=== PATIENT | male | born 1980 | race American Indian/Alaskan Native ===

== ENCOUNTER 2019-01-17 16:23 | Inpatient (IN) | payer MEDICAID ==
[2019-01-17 17:57] LABS: BASO % 0.6 % (0.0-2.0); EOS # 0.1 K/uL (0.0-0.7); EOS % 1.1 % (0.0-4.0); HEMOGLOBIN 12.2 g/dL (12.0-18.0); LYMPH # 2.2 K/uL (1.0-4.3); LYMPH % 27.4 % (20.0-40.0); MEAN CELL VOLUME 82.1 fL (80.0-94.0); MEAN CORPUSCULAR HEMOGLOBIN 27.5 pg (27.0-31.0); MEAN CORPUSCULAR HGB CONC 33.5 g/dL (33.0-37.0); MEAN PLATELET VOLUME 8.7 fL (7.2-11.7); MONO # 0.4 K/uL (0.0-0.8); MONO % 5.4 % (0.0-10.0); NEUT # 5.3 K/uL (1.8-7.0); NEUT % 65.5 % (50.0-75.0); RBC 4.45 Mil/uL (4.40-5.90); RED CELL DISTRIBUTION WIDTH 15.6 % (11.5-14.5); WHITE BLOOD COUNT 8.1 K/uL (4.8-10.8)
[2019-01-17 18:12] LABS: SQUAMOUS EPITHIAL 1 /hpf (0-5); URINE BILIRUBIN NEGATIVE (NEGATIVE); URINE BLOOD 2+ (NEGATIVE); URINE CLARITY Hazy (Clear); URINE COLOR Yellow (YELLOW); URINE GLUCOSE (UA) 3+ mg/dL (Normal); URINE HYALINE CAST 4 /lpf (0-2); URINE LEUKOCYTE ESTERASE TRACE Leu/uL (Negative); URINE PROTEIN 3+ mg/dL (NEGATIVE); URINE UROBILINOGEN NORMAL mg/dL (0.2-1.0)
[2019-01-17 18:14] LABS: ALB/GLOB RATIO 1.3 (1.0-2.1); ALBUMIN 4.2 g/dL (3.5-5.0); ALT/SGPT 23 U/L (21-72); AST/SGOT 26 U/L (17-59); BLOOD UREA NITROGEN 28 mg/dL (9-20); CALCIUM 9.6 mg/dl (8.6-10.4); GFR NON-AFRICAN AMERICAN 56
[2019-01-17 18:21] LABS: BARBITURATES, UR NEGATIVE (NEGATIVE); BENZODIAZEPINES, UR NEGATIVE (NEGATIVE); OPIATES, UR NEGATIVE (NEGATIVE); PHENCYCLIDINE, UR NEGATIVE (NEGATIVE)
[2019-01-17] MEDS ORDERED: (Novolin R) Insulin Human Regular 100 units/ml vial SC ONE (19:40)
--- NOTE | 2019-01-17 19:42 | C.PDOC ---
History Of Present Illness 38 y/o male comes in to ED requesting detox from alcohol. States last drink was earlier today. Denies SI/HI. No f/c/n/v Time Seen by Provider: 01/17/19 19:30 Chief Complaint (Nursing): Substance Abuse History Per: Patient History/Exam Limitations: no limitations Onset/Duration Of Symptoms: Days Current Symptoms Are (Timing): Still Present Suicide/Self Injury Attempted (Context): None Modifying Factor(s): Alcohol Severity: None Pain Scale Rating Of: 0 Associated Symptoms: denies: Depression, Suicidal Thoughts Involuntary Hold By: None Recent travel outside of the [place]: No Additional History Per: Patient Past Medical History Reviewed: Historical Data, Nursing Documentation, Vital Signs Vital Signs: Last Vital Signs Temp 98.1 F 01/17/19 17:50 Pulse 83 01/17/19 17:50 Resp 18 01/17/19 17:50 BP 178/97 H 01/17/19 17:50 Pulse Ox 100 01/17/19 17:50 Primary Care Provider: FAMILY PROVIDER,NO - Medical History PMH: Bipolar Disorder, Depression Family History: States: No Known Family Hx - Social History Hx Alcohol Use: Yes Hx Substance Use: No - Immunization History Hx Tetanus Toxoid Vaccination: Yes Hx Influenza Vaccination: Yes Hx Pneumococcal Vaccination: Yes Review Of Systems Constitutional: Negative for: Fever, Chills Cardiovascular: Negative for: Chest Pain Respiratory: Negative for: Cough, Shortness of Breath Gastrointestinal: Negative for: Nausea, Vomiting Musculoskeletal: Negative for: Back Pain Skin: Negative for: Rash Neurological: Negative for: Weakness, Numbness Psych: Positive for: Other (alcohol abuse). Negative for: Suicidal ideation (or homicidal ideation) Physical Exam - Physical Exam Appears: Non-toxic, No Acute Distress Skin: Warm, Dry Head: Normacephalic Eye(s): bilateral: Normal Inspection Oral Mucosa: Moist Neck: Supple Cardiovascular: Rhythm Regular Respiratory: No Rales, No Rhonchi, No Wheezing Gastrointestinal/Abdominal: Soft, No Tenderness, No Distention Extremity: Normal ROM Extremity: Bilateral: Atraumatic Neurological/Psych: Oriented x3 Gait: Steady ED Course And Treatment - Laboratory Results Result Diagrams: 01/17/19 17:54 01/17/19 17:54 Lab Results: Total Bilirubin 0.7 mg/dL (0.2-1.3) 01/17/19 17:54 AST 26 U/L (17-59) 01/17/19 17:54 ALT 23 U/L (21-72) 01/17/19 17:54 Alkaline Phosphatase 138 U/L (38-126) H 01/17/19 17:54 Total Protein 7.3 g/dL (6.3-8.3) 01/17/19 17:54 Albumin 4.2 g/dL (3.5-5.0) 01/17/19 17:54 Globulin 3.1 gm/dL (2.2-3.9) 01/17/19 17:54 Albumin/Globulin Ratio 1.3 (1.0-2.1) 01/17/19 17:54 Urine Color Yellow (YELLOW) 01/17/19 17:54 Urine Clarity Hazy (Clear) 01/17/19 17:54 Urine pH 5.0 (5.0-8.0) 01/17/19 17:54 Ur Specific [place] 1.027 (1.003-1.030) 01/17/19 17:54 Urine Protein 3+ mg/dL (NEGATIVE) H 01/17/19 17:54 Urine Glucose (UA) 3+ mg/dL (Normal) H 01/17/19 17:54 Urine Ketones Negative mg/dL (NEGATIVE) 01/17/19 17:54 Urine Blood 2+ (NEGATIVE) H 01/17/19 17:54 Urine Nitrate Negative (NEGATIVE) 01/17/19 17:54 Urine Bilirubin Negative (NEGATIVE) 01/17/19 17:54 Urine Urobilinogen Normal mg/dL (0.2-1.0) 01/17/19 17:54 Ur Leukocyte Esterase Trace [place]/uL (Negative) 01/17/19 17:54 Urine WBC (Auto) 19 /hpf (0-5) H 01/17/19 17:54 Urine RBC (Auto) 9 /hpf (0-3) H 01/17/19 17:54 Ur Squamous Epith Cells 1 /hpf (0-5) 01/17/19 17:54 Hyaline Casts 4 /lpf (0-2) 01/17/19 17:54 O2 Sat by Pulse Oximetry: 100 (RA) Pulse Ox Interpretation: Normal Progress Note: pt will benefit from a medical consult regarding his elevated blood sugar. Will also need accuchecks Medical Decision Making Medical Decision Making: Plan: --Labs --UA Disposition Discussed With : Luiz Helton Comment: accepted the pt onhis service and took over the care at 7:41 PM Doctor Will See Patient In The: Hospital Counseled Patient/Family Regarding: Studies Performed, Diagnosis - Disposition Disposition: HOSPITALIZED Disposition Time: 19:00 Condition: FAIR - POA Present On Arrival: Poor Glycemic Control - Clinical Impression Clinical Impression: Alcohol use disorder, severe, dependence, Hyperglycemia - Scribe Statement The provider has reviewed the documentation as recorded by the Naz Martinez Provider Attestation: All medical record entries made by the Naz were at my direction and personally dictated by me. I have reviewed the chart and agree that the record accurately reflects my personal performance of the history, physical exam, medical decision making, and the department course for this patient. I have also personally directed, reviewed, and agree with the discharge instructions and disposition.
--- NOTE | 2019-01-17 20:00 | PCM.BM ---
<Karsten Rhodes - Last Filed: 01/17/19 19:57> Treatment Plan Problems - Problems identified on initial assessmt knowledge deficit:alcohol use Date Initiated: 01/17/19 Time Initiated: 19:58 Assessment reference: NA Status: Active anxiety related to substance use Date Initiated: 01/17/19 Time Initiated: 20:00 Assessment reference: NA Status: Active denial Date Initiated: 01/17/19 Time Initiated: 20:00 Assessment reference: NA Status: Active Treatment assets and liabiliti Patient Assests: adapts well, cooperative, cognitively intact Patient Liabilities: substance abuse, medical problems - Milieu Protocol Maintain good personal hygiene: daily Encourage regular showers, daily Remind patient to perform daily oral care, daily Assist patient to perform ADL's Conduct patient checks and document Observation sheet: Q15 minutes Maintain personal safety: every shift Educate patient to report safety concerns to staff, every shift Monitor environment for contraband/sharps Medication safety: Monitor for expected outcome, potential side effects: every shift, Assess barriers to learning: every shift, Assess readiness for medication education: every shift <Luiz Helton - Last Filed: 01/21/19 12:43> - Diagnosis (1) Alcohol use disorder, severe, dependence Status: Acute Interventions: 01/21/19 12:43 * Assess 7x/week regarding severity of withdrawal * Educate regarding risks, benefits, side effects and alternatives of medications * Use Motivational Interviewing for abstinence * Use CBT for relapse prevention * Medication management for withdrawal symptoms * Encourage medication assisted treatment *
[2019-01-17] MEDS: (Novolog) Insulin Aspart, Recombinant 100 u/ml 10 ml vial SC SCH (22:59)
[2019-01-18] MEDS: (Novolog) Insulin Aspart, Recombinant 100 u/ml 10 ml vial SC SCH ×4 (08:32→21:15)
[2019-01-18] MEDS: Multiple Vitamins Tab PO SCH (14:02)
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
[2019-01-18] MEDS ORDERED: Glucagon Recombinant 1 mg Inj IM PRN (16:13)
[2019-01-18] MEDS ORDERED: Dextrose 50% SYRINGE Inj (50 ml) IV PRN (16:13)
[2019-01-18] MEDS ORDERED: (Novolin R) Insulin Human Regular 100 units/ml vial SC SCH (16:30)
--- NOTE | 2019-01-18 19:32 | PCM.PSYCH ---
Initial Psychiatric Evaluation - Initial Psychiatric Evaluation Type of Admission: Voluntary Legal Status: Capacity Chief Complaint (in patient's own words): "I want detox from alcohol" History of Present Illness and Precipitating Events: Patient is a 38 year old -[place] single male, who presented to the ED requesting alcohol detox. He reports that he drinks 10-20 cans of beer daily. He reports that he started drinking when he was 11 years old. He reports that he does not drink hard liquor, and reports that he has a history of seizures and significant withdrawal symptoms when he stops drinking. He reports that the last time he had a seizure was 2 years ago, he denies any history of DTs. Patient reports that he has been to a detox for alcohol 5 years ago at [facility]. Patient also reports a history of Bipolar and depression, but he is not taking any psychiatric medications. He reports that he has been treated with Celexa and Depaokote in the past, and last time he took medication was the time when he was incarcerated about 2 months ago. Patient reports he was in penitentiary for violating parole for burglary. Patient currently lives with his mother and his son. He is unemployed and is on SSI. He reports that he smokes about 1 pack of cigarettes daily, but does not want a nicotine patch. He denies using any other illicit drugs. He reports that his sleep and appetite are good. He is motivated to get treatment and possibly get into a rehab upon discharge. He reports having withdrawal symptoms such as diaphoresis, body aches, irritability and anxiety. PsychHx: Bipolar and Depression - treated with Celexa and Depakote, Alcohol Use Disorder, Tobacco Use Disorder, denies any suicide attempts PMHx: Diabetes, ?Diabetic Neuropathy FamHx: Denies Current Medications: Active Medications Generic Name Dose Route Start Last Admin Trade Name Freq PRN Reason Stop Dose Admin Chlordiazepoxide 25 mg 01/18/19 06:00 01/18/19 17:04 Librium PO 01/22/19 05:59 25 mg Q6 SHAYLA Administration Taper Clonidine HCl 0.1 mg 01/18/19 06:14 01/18/19 17:03 Catapres PO 0.1 mg Q6H PRN Administration Withdrawal symptoms Dextrose 0 ml 01/18/19 16:13 Dextrose 50% Inj IV STAT PRN Hypoglycemia Protocol Protocol Dextrose 0 gm 01/18/19 16:13 Glutose 15 PO ONCE PRN Hypoglycemia Protocol Protocol Folic Acid 1 mg 01/18/19 13:15 01/18/19 14:02 Folic Acid PO 1 mg DAILY SHAYLA Administration Gabapentin 100 mg 01/18/19 18:00 01/18/19 17:03 Neurontin PO 100 mg TID SHAYLA Administration Glucagon 0 mg 01/18/19 16:13 Glucagen Diagnostic Kit IM STAT PRN Hypoglycemia Protocol Protocol Dextrose 1,000 mls @ 0 mls/hr 01/18/19 16:13 Dextrose 5% In Water 1000 Ml IV .Q0M PRN Hypoglycemia Protocol Protocol Per Protocol Insulin Aspart 0 unit 01/18/19 16:58 Novolog SC [facility] Protocol Multivitamins 1 tab 01/18/19 13:15 01/18/19 14:02 Hexavitamin PO 1 tab DAILY SHAYLA Administration Thiamine HCl 100 mg 01/18/19 13:15 01/18/19 14:02 Vitamin B1 Tab PO 100 mg DAILY SHAYLA Administration Trazodone HCl 50 mg 01/18/19 13:08 Desyrel PO HS PRN Insomnia Past Psychiatric History - Past Psychiatric History Pertinent Medical Hx (Current Medical&Sleep Prob, Allergies): Allergies Allergy/AdvReac Type Severity Reaction Status Date / Time No Known Allergies Allergy Unverified 01/17/19 16:29 Citalopram Hydrobromide [Celexa] 20 mg PO BID 01/17/19 Divalproex [Depakote ER] 300 mg PO BID 01/17/19 Review of Systems - Psychiatric Psychiatric: As Per HPI, Behavioral Changes, Change in Appetite, Depression, Difficulty Concentrating, Irritability Mental Status Examination - Affect Affect: Depressed - Motor Activity Motor Activity: Calm - Reliability in Providing Information Reliability in Providing Information: Fair - Speech Speech: Organized, Relevant, Coherent - Mood Mood: Depressed, Anxious - Formal Thought Process Formal Thought Process: No Impairment - Obsessions/Compulsions Obsessions: None Compulsions: None - Cognitive Functions Orientation: Person, Place, Situation, Time Sensorium: Alert Attention/Concentration: Attentive Estimate of Intelligence: Average Judgement: Imparied, as evidence by: Poor judgement Memory: Recent intact, as evidence by: 3/3 object recall - Risk Risk: Seizure, Withdrawal, Falls - Strength & Assets Inventory Strength & Assets Inventory: Family support, Life experience DSM 5 DX - DSM 5 DSM 5 Diagnosis: Alcohol Withdrawal Alcohol Use Disorder Bipolar Disorder MRE Depressed - Recommended/Plan of Treatment Treatment Recommendations and Plan of Treatment: Taper with Librium Gabapentin for augmentation if needed As needed medications: - Librium, Clonidine, Atarax and Trazodone All risks, benefits and alternatives of the meds discussed, and the pt agreed and understood. Attend groups and activities Supportive therapy and psychoeducation MT for abstinence CBT for relapse prevention Encourage MAT Refer to rehab or IOP, and self-help groups Teach healthy lifestyle methods, i.e. diet, exercise, meditation Smoking cessation with MT Nicotine patch if needed - Patient declined 34 min Projected ELOS: TBD - Smoking Cessation Smoking Cessation Initiated: No Reason for not providing: Patient declined offer even after education
[2019-01-19] MEDS: (Novolog) Insulin Aspart, Recombinant 100 u/ml 10 ml vial SC SCH ×4 (07:36→20:59)
[2019-01-19 09:00] LABS: BASO % 0.7 % (0.0-2.0); EOS # 0.1 K/uL (0.0-0.7); EOS % 1.6 % (0.0-4.0); HEMOGLOBIN 11.6 g/dL (12.0-18.0); LYMPH # 2.2 K/uL (1.0-4.3); LYMPH % 32.5 % (20.0-40.0); MEAN CELL VOLUME 82.9 fL (80.0-94.0); MEAN CORPUSCULAR HGB CONC 33.8 g/dL (33.0-37.0); MEAN PLATELET VOLUME 9.2 fL (7.2-11.7); MONO # 0.4 K/uL (0.0-0.8); MONO % 6.4 % (0.0-10.0); NEUT # 4.1 K/uL (1.8-7.0); NEUT % 58.8 % (50.0-75.0); NRBC % 0.1 % (0.0-2.0); RBC 4.12 Mil/uL (4.40-5.90); RED CELL DISTRIBUTION WIDTH 15.6 % (11.5-14.5); WHITE BLOOD COUNT 6.9 K/uL (4.8-10.8)
[2019-01-19 09:22] LABS: ALB/GLOB RATIO 1.5 (1.0-2.1); ALBUMIN 3.6 g/dL (3.5-5.0); ALT/SGPT 18 U/L (21-72); AST/SGOT 121 U/L (17-59); BLOOD UREA NITROGEN 20 mg/dL (9-20); CALCIUM 9.4 mg/dl (8.6-10.4); GFR NON-AFRICAN AMERICAN 56
[2019-01-19] MEDS: Divalproex 250 mg DR Tab PO SCH ×2 (10:38→17:00)
[2019-01-19] MEDS: Multiple Vitamins Tab PO SCH (10:38)
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
--- NOTE | 2019-01-19 11:57 | US ---
Date of service: 01/19/2019 PROCEDURE: Ultrasound of the Kidneys HISTORY: renal impairment COMPARISON: None available. TECHNIQUE: Sonogram of the kidneys. FINDINGS: RIGHT KIDNEY: Measures: 11.8 x 5.7 x 6.2 cm. Normal in size, contour and echogenicity. No stone, solid mass lesion or hydronephrosis visualized. There is hypoechoic lesion at the midpole of the right kidney measures 3.5 x 2.7 x 3.5 centimeter contains since septation. LEFT KIDNEY: Measures: 11.3 x 6.1 x 6 cm. Normal in size, contour and echogenicity. No stone, solid mass lesion or hydronephrosis visualized. OTHER FINDINGS: None. IMPRESSION: Hypoechoic lesion at the midpole of the right kidney measures 3.5 centimeter contains thin septation likely represent renal cyst. No evidence of hydronephrosis.
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
--- NOTE | 2019-01-19 18:39 | PCM.PYCHPN ---
Psychiatric Progress Note - Psychiatric Progress Note Patient seen today, length of contact: 17 Mins Patient Chief Complaint: "I want detox from alcohol" Problems Identified/Issues Discussed: The pt is seen, chart reviewed, case is discussed with staff. Patient had critical value or random glucose 616 - He is currently being followed by medicine The pt is compliant with medications and reports no side-effects. Symptoms are improving but needs more time to stabilize and to avoid relapse. Pt attends groups and activities. Support given, psycho-education provided. After care discussed. Medication Change: Yes (Detox changes daily) Medical Record Reviewed: Yes Mental Status Examination - Cognitive Function Orientation: Person, Place, Situation, Time Attention: WNL Concentration: WNL - Mood Mood: Depressed, Anxious - Affect Affect: Blunted, Depressed - Speech Speech: Appropriate - Formal Thought Process Formal Thought Process: No Impairment - Suicidal Ideation Suicidal Ideation: No - Homicidal Ideation Homicidal Ideation: No Goal/Treatment Plan - Goal/Treatment Plan Need for Continued Stay: Remain at risks for inpatient hospitalization, Discharge may exacerbated symptoms Progress Toward Problem(s) and Goals/Treatment Plan: Continue medications Support and psychoeducation daily Attend groups and activities daily Individual therapy After care planning by executive secretary social welfare and the team
[2019-01-19] MEDS ORDERED: (Lantus) Insulin Glargine, Recombinant SC SCH (22:00)
[2019-01-20 08:22] LABS: BASO % 0.6 % (0.0-2.0); EOS # 0.1 K/uL (0.0-0.7); EOS % 1.6 % (0.0-4.0); HEMOGLOBIN 11.4 g/dL (12.0-18.0); LYMPH # 2.5 K/uL (1.0-4.3); LYMPH % 33.5 % (20.0-40.0); MEAN CELL VOLUME 82.6 fL (80.0-94.0); MEAN CORPUSCULAR HEMOGLOBIN 27.5 pg (27.0-31.0); MEAN CORPUSCULAR HGB CONC 33.2 g/dL (33.0-37.0); MEAN PLATELET VOLUME 9.7 fL (7.2-11.7); MONO # 0.4 K/uL (0.0-0.8); MONO % 5.7 % (0.0-10.0); NEUT # 4.4 K/uL (1.8-7.0); NEUT % 58.6 % (50.0-75.0); NRBC % 0.1 % (0.0-2.0); RBC 4.15 Mil/uL (4.40-5.90); WHITE BLOOD COUNT 7.5 K/uL (4.8-10.8)
[2019-01-20] MEDS: (Novolog) Insulin Aspart, Recombinant 100 u/ml 10 ml vial SC SCH ×4 (08:43→21:17)
[2019-01-20 08:53] LABS: ALB/GLOB RATIO 1.4 (1.0-2.1); ALBUMIN 3.2 g/dL (3.5-5.0); ALT/SGPT 22 U/L (21-72); AST/SGOT 28 U/L (17-59); BLOOD UREA NITROGEN 20 mg/dL (9-20); CALCIUM 9.2 mg/dl (8.6-10.4); GFR NON-AFRICAN AMERICAN > 60; HDL CHOLESTEROL 58 mg/dL (30-70)
[2019-01-20 08:56] LABS: LDL CHOLESTEROL 112 mg/dL (0-129)
[2019-01-20] MEDS: Divalproex 250 mg DR Tab PO SCH ×2 (10:22→17:08)
[2019-01-20] MEDS: Multiple Vitamins Tab PO SCH (10:23)
[2019-01-20] MEDS ORDERED: (Novolog Mix 70/30) Insulin Aspart/Insulin Aspar 100 units/ml SC SCH (16:30)
[2019-01-20 19:24] LABS: HEPATITIS B SURFACE AG Negative (NEGATIVE)
[2019-01-20 19:30] LABS: HEPATITIS A IGM NEGATIVE (NEGATIVE); HEPATITIS B CORE AB NEGATIVE (NEGATIVE)
[2019-01-20 19:42] LABS: HEPATITIS C ANTIBODY NEGATIVE (NEGATIVE)
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
--- NOTE | 2019-01-20 22:25 | PCM.PYCHPN ---
Psychiatric Progress Note - Psychiatric Progress Note Patient seen today, length of contact: 17 Mins Patient Chief Complaint: "I am still have some withdrawals" Problems Identified/Issues Discussed: The pt is seen, chart reviewed, case is discussed with staff. Support and psychoeducation given, CBT and PA used briefly The pt is improving slowly but needs more time due to severity of symptoms and relapse risk. No SEs from medications, risks discussed. After care discussed Medication Change: Yes (Detox changes daily) Medical Record Reviewed: Yes Mental Status Examination - Cognitive Function Orientation: Person, Place, Situation, Time Attention: WNL Concentration: WNL - Mood Mood: Depressed, Anxious - Affect Affect: Blunted, Depressed - Speech Speech: Appropriate - Formal Thought Process Formal Thought Process: No Impairment - Suicidal Ideation Suicidal Ideation: No - Homicidal Ideation Homicidal Ideation: No Goal/Treatment Plan - Goal/Treatment Plan Need for Continued Stay: Remain at risks for inpatient hospitalization, Discharge may exacerbated symptoms Progress Toward Problem(s) and Goals/Treatment Plan: Continue medications Support and psychoeducation daily Attend groups and activities daily Individual therapy After care planning by social services counselor and the team
[2019-01-21 07:20] LABS: BASO % 0.6 % (0.0-2.0); EOS # 0.2 K/uL (0.0-0.7); EOS % 1.8 % (0.0-4.0); HEMOGLOBIN 10.4 g/dL (12.0-18.0); LYMPH # 2.5 K/uL (1.0-4.3); MEAN CELL VOLUME 81.2 fL (80.0-94.0); MEAN CORPUSCULAR HEMOGLOBIN 27.9 pg (27.0-31.0); MEAN CORPUSCULAR HGB CONC 34.3 g/dL (33.0-37.0); MEAN PLATELET VOLUME 9.5 fL (7.2-11.7); MONO # 0.7 K/uL (0.0-0.8); MONO % 7.5 % (0.0-10.0); NEUT # 5.3 K/uL (1.8-7.0); NEUT % 61.1 % (50.0-75.0); RBC 3.73 Mil/uL (4.40-5.90); RED CELL DISTRIBUTION WIDTH 15.6 % (11.5-14.5); WHITE BLOOD COUNT 8.7 K/uL (4.8-10.8)
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
[2019-01-21] MEDS: (Novolog Mix 70/30) Insulin Aspart/Insulin Aspar 100 units/ml SC SCH (08:12)
[2019-01-21] MEDS: (Novolog) Insulin Aspart, Recombinant 100 u/ml 10 ml vial SC SCH ×4 (08:13→22:11)
[2019-01-21 08:29] LABS: ALB/GLOB RATIO 1.2 (1.0-2.1); ALBUMIN 2.8 g/dL (3.5-5.0); ALT/SGPT 26 U/L (21-72); AST/SGOT 26 U/L (17-59); BLOOD UREA NITROGEN 23 mg/dL (9-20); GFR NON-AFRICAN AMERICAN 56
[2019-01-21] MEDS: Multiple Vitamins Tab PO SCH (09:34)
[2019-01-21] MEDS: Divalproex 250 mg DR Tab PO SCH (09:35)
--- NOTE | 2019-01-21 12:43 | PCM.PYCHPN ---
Psychiatric Progress Note - Psychiatric Progress Note Patient seen today, length of contact: 17 Mins Patient Chief Complaint: "I'm OK" Problems Identified/Issues Discussed: The pt is seen, chart reviewed, case discussed with staff. The pt is compliant with medications and reports no side-effects. Symptoms are improving but needs more time to stabilize. Pt attends groups and activities. Support given, psycho-education provided. After care discussed. Wants to go to [facility] but his glc is too high Bilingual Teacher Aide spoke to Dr Matos about that and his need of insulin pens. Medication Change: Yes (Detox changes daily) Medical Record Reviewed: Yes Mental Status Examination - Cognitive Function Orientation: Person, Place, Situation, Time Memory: Intact Attention: WNL Concentration: WNL - Mood Mood: Depressed, Anxious - Affect Affect: Blunted - Speech Speech: Appropriate - Formal Thought Process Formal Thought Process: No Impairment - Suicidal Ideation Suicidal Ideation: No - Homicidal Ideation Homicidal Ideation: No Goal/Treatment Plan - Goal/Treatment Plan Need for Continued Stay: Discharge may exacerbated symptoms, Severe functional impairment Progress Toward Problem(s) and Goals/Treatment Plan: Continue medications Support and psychoeducation daily Attend groups and activities daily After care planning by VENTURA
[2019-01-21] MEDS ORDERED: (Novolog Mix 70/30) Insulin Aspart/Insulin Aspar 100 units/ml SC SCH (19:30)
[2019-01-21] MEDS ORDERED: (Lantus) Insulin Glargine, Recombinant SC SCH (22:00)
--- NOTE | 2019-01-22 07:49 | CP.PCM.PCO ---
Physician Communication Note - Physician Communication Note Physician Communication Note: Please see above
[2019-01-22] MEDS: (Novolog) Insulin Aspart, Recombinant 100 u/ml 10 ml vial SC SCH (07:52)
[2019-01-22] MEDS: (Novolog Mix 70/30) Insulin Aspart/Insulin Aspar 100 units/ml SC SCH (07:53)
--- NOTE | 2019-01-22 08:52 | PCM.PYCHDC ---
Mental Status Examination - Mental Status Examination Orientation: Person Discharge Summary - Discharge Note Laboratory Data: Abnormal Lab Results 01/21/19 01/21/19 01/21/19 07:28 11:36 16:45 POC Glucose (mg/dL) 459 H* 177 H 304 H 01/21/19 01/21/19 01/22/19 20:21 21:39 07:32 POC Glucose (mg/dL) 466 H* 497 H* 387 H Consultations:: List each consultation separately and include: 1. Reason for request. 2. Findings. 3. Follow-up Summary of Hospital Course include:: 1. Description of specific treatment plan utilized for patients during their course of treatmen. 2. Summarize the time- course for resolution of acute symptoms and/or regressed behaviors. 3. Describe issues identified and worked on during hospitalization. 4. Describe medication utilized. 5. Describe medical problems identified and treated. 6. Reassessment of suicide risk Summary of Hospital Course: He wanted but couldn't go to [facility] rehab bc of extremely high glucose. He will fix that and reapply. He will goto an IOP in [place] in the meantime. He refused referrals in [place]. - Diagnosis (1) Alcohol use disorder, severe, dependence Current Visit: Yes Status: Acute - Final Diagnosis (DSM 5) Condition upon Discharge: FAIR Disposition: HOME/ ROUTINE Follow-up Treatment Plan: Continue medications Support and psychoeducation daily Attend groups and activities daily After care planning by VENTURA Prescriptions/Medication Reconciliation: Citalopram [celEXA] 20 mg PO DAILY #30 tab Gabapentin [Neurontin] 100 mg PO TID #90 cap Lisinopril [Zestril] 5 mg PO DAILY #30 tab traZODone [Desyrel] 50 mg PO HS PRN #30 tab PRN Reason: Insomnia
[2019-01-22] MEDS: Multiple Vitamins Tab PO SCH (10:18)
[2019-01-22 11:05] VITALS: BP 121/71; PULSE 83; RESP 18; TEMP 97.6; O2SAT 100
== END 2019-01-22 10:40 | disposition home or self-care (01) | DRG 747 ==
LOC: C.ER 16:23 → C.7D 19:40
PROVIDERS: ADMIT Psychiatry & Neurology Psychiatry; ATTEND Psychiatry & Neurology Psychiatry
PROC: GZ56ZZZ Individual Psychotherapy, Supportive (ICD-10-PCS; principal; 2019-01-17)
DX: F12.90 Cannabis use, unspecified, uncomplicated (principal); E10.65 Type 1 diabetes mellitus with hyperglycemia; F17.210 Nicotine dependence, cigarettes, uncomplicated; F31.30 Bipolar disorder, current episode depressed, mild or moderate severity, unspecified; F10.230 Alcohol dependence with withdrawal, uncomplicated; Y90.0 Blood alcohol level of less than 20 mg/100 ml; F41.9 Anxiety disorder, unspecified; I10 Essential (primary) hypertension; Z79.4 Long term (current) use of insulin